=== PATIENT | male | born 1965 | race Caucasian/White ===

== ENCOUNTER 2021-03-26 18:37 | Emergency (ER) | payer SELFPAY | END 2021-03-26 21:23 | disposition home or self-care (01) | LOC: MADERS 18:37 | DX: B34.9 Viral infection, unspecified (principal); J18.9 Pneumonia, unspecified organism | CPT/HCPCS: 71045; 99283 ==

== ENCOUNTER 2021-04-01 17:39 | Emergency (ER) | payer SELFPAY ==
[2021-04-01] MEDS ORDERED: Iopamidol 370 76% 100 ML VIAL IV ONE (17:40)
[2021-04-01] MEDS ORDERED: Ondansetron PF 4 MG/2 ML Vial ONE (18:05)
[2021-04-01] MEDS ORDERED: Sodium Chloride 0.9% 1,000 ML ONE (18:05)
[2021-04-01 18:46] LABS: Lymphocytes 17 % (21-51); MDiff Complete? YES; Mean Corpuscular HGB CONC 32.8 g/dL (32.0-36.0); Mean Corpuscular Volume 88.5 fL (78.0-98.0); Mean Platelet Volume 6.8 fL (7.4-10.4); Monocytes 6 % (0-10); Neutrophil 76 % (42-75); Platelet Count 318 thou/uL (130-400); Platelet Morphology Comment Appears Adequate; RBC Distribution Width 11.9 % (11.5-14.5); RBC Morphology Normal; Reactive Lymphocytes 1 % (0-10); Red Blood Cell (RBC) Count 5.19 mill/uL (4.70-6.10); White Blood Cell (WBC) Count 7.3 thou/uL (4.8-10.8)
[2021-04-01 18:48] LABS: ALT (SGPT) 83 U/L (8-55); AST (SGOT) 48 U/L (5-34); Albumin 3.3 g/dL (3.5-5.0); Alkaline Phosphatase 74 U/L (40-110); Anion Gap 11 mmol/L (10-20); BUN (Urea Nitrogen) 15 mg/dL (8.4-25.7); Bilirubin, Total 1.7 mg/dL (0.2-1.2); Calc. Creatinine Clearance 0 mL/min (70-130); Calcium 8.5 mg/dL (7.8-10.44); Carbon Dioxide 24 mmol/L (22-29); Chloride 106 mmol/L (98-107); Globulin 3.3 g/dL (2.4-3.5); Glucose 120 mg/dL (70-105); Magnesium 1.8 mg/dL (1.6-2.6); Potassium 3.2 mmol/L (3.5-5.1); Protein, Total 6.6 g/dL (6.0-8.3); Sodium 138 mmol/L (136-145)
[2021-04-01] MEDS ORDERED: NS 0.9% w/ 20 MEQ KCL 1,000 ML ONE (19:02)
[2021-04-01] MEDS ORDERED: Ketorolac Tromethamine 30 MG/ML VIAL ONE (19:58)
[2021-04-02 16:15] LABS: SARS-CoV-2 PCR by NAA DETECTED (NotDetected)
== END 2021-04-01 21:26 | disposition home or self-care (01) ==
LOC: MADERS 17:39
DX: U07.1 COVID-19 (principal); J12.82 Pneumonia due to coronavirus disease 2019; E87.6 Hypokalemia; R11.2 Nausea with vomiting, unspecified
CPT/HCPCS: 71045; 74177; 80053; 83605; 83735; 85025; 96365; 96366; 96375; J1885; J2405; J3480; J7050; Q9967; U0003; U0005

== ENCOUNTER 2023-04-08 15:47 | Emergency (ER) | payer OTHER ==
[2023-04-08] MEDS ORDERED: Bacitracin 1 PK ONE (17:48)
== END 2023-04-08 17:55 | disposition home or self-care (01) ==
LOC: MADERS 15:47
DX: S62.633A Displaced fracture of distal phalanx of left middle finger, initial encounter for closed fracture (principal); S62.635A Displaced fracture of distal phalanx of left ring finger, initial encounter for closed fracture; W31.89XA Contact with other specified machinery, initial encounter; Y99.0 Civilian activity done for income or pay
CPT/HCPCS: 11740

== ENCOUNTER 2025-02-10 07:03 | Emergency (ER) | payer OTHER, SELFPAY ==
[2025-02-10] MEDS ORDERED: Ondansetron PF 4 MG/2 ML Vial ONE (07:26)
[2025-02-10] MEDS ORDERED: Ketorolac Tromethamine 30 MG (1 mL) VIAL ONE (07:26)
[2025-02-10 07:40] LABS: Hematocrit 48.2 % (42.0-52.0); Hemoglobin 15.2 g/dL (14.0-18.0); Mean Corpuscular Hemoglobin 28.2 pg (27.0-31.0); Mean Corpuscular Volume 89.8 fl (78.0-98.0); Platelet Count 244 10x3/uL (130-400); Red Blood Cell (RBC) Count 5.37 mill/uL (4.70-6.10); White Blood Cell (WBC) Count 6.2 10x3/uL (4.8-10.8)
[2025-02-10 07:43] LABS: MDiff Complete? YES; Manual Diff?? YES
[2025-02-10 07:44] LABS: Platelet Adequacy Comment Appears Adequate
[2025-02-10 07:48] LABS: ALT (SGPT) 26 U/L (Less than 45); AST (SGOT) 23 U/L (11-34); Albumin 4.2 g/dL (3.1-4.5); Alkaline Phosphatase 85 U/L (40-110); Anion Gap 15 mmol/L (10-20); BUN (Urea Nitrogen) 21 mg/dL (8.4-25.7); Bilirubin, Total 1.7 mg/dL (0.3-1.2); Calc. Creatinine Clearance 0 mL/min (70-130); Calcium 8.9 mg/dL (7.8-10.44); Carbon Dioxide 21 mmol/L (22-29); Chloride 107 mmol/L (98-107); Globulin 2.8 g/dL (2.4-3.5); Glucose 150 mg/dL (70-105); Potassium 3.8 mmol/L (3.5-5.1); Sodium 139 mmol/L (136-145)
[2025-02-10 07:49] LABS: Glucose, Urine (Dipstick) Negative (Negative); Leukocyte Negative (Negative); Protein, Urine (Dipstick) 30 mg/dL (Neg-Trace); Specific Gravity, Urine Greater/Equal 1.030 (1.005-1.030)
[2025-02-10 07:52] LABS: CAUTI Indications for Culture Dysuria,urgency,freq; WBC/HPF 0-3 HPF (0-3)
[2025-02-10 07:53] LABS: Bacteria/HPF Rare-Few HPF (None Seen)
[2025-02-10 07:54] LABS: Urine Culture Reflex No No
== END 2025-02-10 09:22 | disposition home or self-care (01) ==
LOC: MADERS 07:03
DX: N13.2 Hydronephrosis with renal and ureteral calculous obstruction (principal)
CPT/HCPCS: 74176; 80053; 81001; 85025; 96374; 96375; J1885; J2405; J7030